=== PATIENT | male | born 1960 | race Caucasian/White ===

== ENCOUNTER 2020-01-29 09:54 | Emergency (ER) | payer BC, SELFPAY ==
[2020-01-29 09:59] VITALS: BP 172/106; PULSE 116; RESP 18; TEMP 35.7; O2SAT 100
--- NOTE | 2020-01-29 10:00 | ED.GIBLEED ---
HPI - GI Bleed General Chief complaint: Unspecified Stated complaint: gi bleed Time Seen by Provider: 01/29/20 09:57 Source: patient Mode of arrival: ambulatory Limitations: no limitations History of Present Illness HPI Narrative: This is a 59-year-old male that presents the emergency department for rectal bleeding since last night. Reports 2 days ago he started to have some pain in the area due to hemorrhoids. Reports last night he started to have bright red blood that he noted when he wiped. Reports he currently has a referral to see Dr. Coleman as he is in need of a colonoscopy. Denies fever, abdominal pain, or vomiting. Related Data Allergies Allergy/AdvReac Type Severity Reaction Status Date / Time No Known Allergies Allergy Verified 01/29/20 10:02 Review of Systems Review of Systems: Narrative: CONSTITUTIONAL: Denies fever GASTROINTESTINAL: Denies abdominal pain, nausea, vomiting, or diarrhea. All systems reviewed & are unremarkable except as noted in HPI and below PMFSH Past Medical History Medical History (Updated 01/29/20 @ 11:03 by Aimee Serrato PA-C) Essential (primary) hypertension Mixed hyperlipidemia Screen for colon cancer Social History Social History Smoking status: Never smoker Alcohol intake: current Exam Narrative: Exam Narrative: GENERAL: Well-appearing, well-nourished, and in no acute distress. HEAD: Normocephalic, atraumatic. EYES: EOMI. EXTREMITIES: Normal range of motion. No edema. SKIN: Warm, dry, no rash. NEURO: No focal deficits. Alert and oriented x3. PSYCH: Normal mood and affect RECTAL: Thrombosed external hemorrhoid present, no active bleeding Course Consultations Consultation #1: I did speak with Dr. Coleman who will follow up with patient in clinic. Date: 01/29/20 Time: 11:02 Vital Signs Vital signs: Vital Signs Temperature 96.2 F L 01/29/20 09:59 Pulse Rate 116 H 01/29/20 09:59 Respiratory Rate 18 01/29/20 09:59 Blood Pressure 172/106 H 01/29/20 09:59 Pulse Oximetry 100 01/29/20 09:59 Temperature 96.2 F L 01/29/20 09:59 Pulse Rate 98 01/29/20 10:57 Respiratory Rate 18 01/29/20 10:57 Blood Pressure 154/99 H 01/29/20 10:57 Pulse Oximetry 100 01/29/20 10:57 MDM - GI Bleed MDM Narrative Medical decision making narrative: Patient presents the emergency department for thrombosed external hemorrhoid. No active bleeding on exam. Patient is not orthostatic. His hemoglobin is stable at 16.9 when compared to previous labs a couple of days ago. Patient's blood pressure was elevated on arrival to 170s over 100s. This improved without intervention. Most recent blood pressure 154/99. He was instructed to continue to monitor his blood pressure at home and follow-up with his primary for this. Patient will be started on phenylephrine ointment for his hemorrhoid. I did speak with Dr. Coleman who will follow up with patient in clinic. Patient is stable and felt appropriate for further outpatient evaluation. He was given warnings to return to the ER Lab Data Attestation: I reviewed the patient's lab results. Result diagrams: 01/29/20 10:30 Labs: Lab Results 01/29/20 01/29/20 Range/Units 10:30 10:30 WBC 8.7 (4.5-10.0) K/mm3 RBC 5.75 (4.6-6.20) M/mm3 Hgb 16.9 (14.0-18.0) g/dL Hct 49.9 (42.0-52.0) % MCV 86.8 (80-100) fl MCH 29.4 (26-34) pg MCHC 33.9 (32-36) g/dl RDW 12.8 (11.5-14.5) % Plt Count 186 (150-375) k/mm3 MPV 11.4 H (7.4-10.4) fl Immature Gran % (Auto) 0.3 (0-0.5) % Neut % (Auto) 71.9 (45.5-73.1) % Lymph % (Auto) 18.6 (18.3-44.2) % [place] % (Auto) 8.3 (2.6-8.5) % Eos % (Auto) 0.6 (0-4.4) % Baso % (Auto) 0.3 (0.2-1.2) % Lymph # (Auto) 1.61 (0.9-3.2) K/mm3 [place]ami # (Auto) 0.7 H (0.1-0.6) K/mm3 Eos # (Auto) 0.1 (0-0.3) K/mm3 Baso # (Auto) 0.0 (0.0-0.1)
[2020-01-29 10:30] VITALS: BP 169/102; BP 183/110; PULSE 100; PULSE 98
[2020-01-29 10:31] VITALS: BP 174/121; PULSE 103
[2020-01-29 10:38] LABS: Basophils Percent Auto 0.3 % (0.2-1.2); Eosinophils Absolute Auto 0.1 K/mm3 (0-0.3); Eosinophils Percent Auto 0.6 % (0-4.4); Hematocrit 49.9 % (42.0-52.0); Hemoglobin 16.9 g/dL (14.0-18.0); Immature Granulocyte Absolute 0.03 K/mm3 (0.00-0.031); Immature Granulocyte Percent A 0.3 % (0-0.5); Lymphocytes Absolute Auto 1.61 K/mm3 (0.9-3.2); Lymphocytes Percent Auto 18.6 % (18.3-44.2); Mean Corpuscular HGB Conc 33.9 g/dl (32-36); Mean Corpuscular Hemoglobin 29.4 pg (26-34); Mean Corpuscular Volume 86.8 fl (80-100); Mean Platelet Volume 11.4 fl (7.4-10.4); Monocytes Absolute Auto 0.7 K/mm3 (0.1-0.6); Monocytes Percent Auto 8.3 % (2.6-8.5); Neutrophils Absolute Auto 6.2 K/mm3 (1.3-6.7); Neutrophils Percent Auto 71.9 % (45.5-73.1); Platelet Count Result 186 k/mm3 (150-375); Red Blood Count 5.75 M/mm3 (4.6-6.20); Red Cell Distribution Width 12.8 % (11.5-14.5); White Blood Count 8.7 K/mm3 (4.5-10.0)
[2020-01-29 10:46] LABS: Prothrombin Time 12.9 Seconds (11.1-14.7)
[2020-01-29 10:47] LABS: Partial Thromboplastin Time 29.2 SECONDS (22.3-36.8)
[2020-01-29 10:57] VITALS: BP 154/99; PULSE 98; RESP 18; O2SAT 100
== END 2020-01-29 11:22 | disposition home or self-care (01) ==
PROVIDERS: Physician Assistant; Emergency Provider Emergency Medicine; PCP Family Medicine
DX: K64.5 Perianal venous thrombosis (principal); I10 Essential (primary) hypertension; E78.2 Mixed hyperlipidemia
CPT/HCPCS: 36415; 85025; 85610; 85730; 86850; 86900; 86901; 99283

== ENCOUNTER 2020-03-13 10:12 | Outpatient (NON) | payer BC, SELFPAY ==
[2020-03-14 01:50] LABS: SARS-CoV-2 RNA PCR Positive
== END 2020-03-13 10:13 ==
LOC: ANHCOVIDDT 10:13
PROVIDERS: PCP Family Medicine; Visit Provider Family Medicine
DX: U07.1 COVID-19 (principal)
CPT/HCPCS: 87635; C9803; U0003

== ENCOUNTER 2020-08-12 16:02 | Outpatient (CLI) | payer BC, SELFPAY | END 2020-08-12 16:03 | disposition home or self-care (01) | LOC: ANHCOVIDVC 16:02 | PROVIDERS: PCP Family Medicine | DX: Z23 Encounter for immunization (principal) | CPT/HCPCS: 0001A; 91300 ==

== ENCOUNTER 2020-09-02 16:24 | Outpatient (CLI) | payer BC, SELFPAY | END 2020-09-02 16:25 | disposition home or self-care (01) | LOC: ANHCOVIDVC 16:24 | PROVIDERS: PCP Family Medicine | DX: Z23 Encounter for immunization (principal) | CPT/HCPCS: 0002A; 91300 ==

== ENCOUNTER 2021-11-21 01:09 | Day surgery (SDC) | payer BC, SELFPAY ==
[2021-11-11 08:59] VITALS: BMI 39.4
--- NOTE | 2021-11-21 09:24 | WPDANESEPPF ---
Anes - Initial Pre Proc Eval Procedure: Operation Date: 11/21/21 11:00 Proposed Procedures p Screening Colonoscopy - Jeffery Coleman MD Date/Time: 11/21/21 09:24 Surgeon: Jeffery Coleman MD Pre Op Diagnosis: neoplasm screening Patient Data Age: 61 Gender: M Height: 1.83 m Weight: 132 kg Allergies Allergy/AdvReac Type Severity Reaction Status Date / Time No Known Allergies Allergy Verified 11/21/21 10:35 Home Medications Medication Instructions Recorded Confirmed Type lisinopril 10 mg tablet 10 mg PO DAILY #90 tabs 06/06/21 11/21/21 Rx testosterone 20.25 mg/1.25 gram 2 pump topical DAILY #75 grams 06/10/21 11/21/21 Rx (1.62 %) transdermal gel pump (AndroGel) Patient hx anesthesia problems: none Family hx anesthesia problems: none Results Review: All pre-operative results and documents have been reviewed as part of the pre-operative evaluation. [facility] Past Medical History Medical History (Updated 11/21/21 @ 09:25 by Benny Grajeda MD) BMI 36.0-36.9,adult BMI 38.0-38.9,adult BMI 39.0-39.9,adult Encounter for screening colonoscopy Essential (primary) hypertension Hypertension Insomnia Major depressive disorder, single episode, unspecified Mixed hyperlipidemia Mixed hyperlipidemia Obesity (BMI 30-39.9) REY (obstructive sleep apnea) Screen for colon cancer Family History Family History Father Family history of heart disease in male family member before age 55 Mother Family history of heart disease in male family member before age 55 Sibling Alzheimer disease Parkinson disease Social History Social History (Updated 11/11/21 @ 09:11 by Martina Lal RN) Smoking packs per day: 1 Smoking cigarettes per day: 20.0 Years smoked: 20 Smoking pack-years: 20.00 Smoking status: Former smoker Tobacco type: cigarettes Second hand tobacco smoke exposure: No Alcohol intake: current Alcohol use details: occasional Substance use: never Substance use type: does not use Living arrangements: alone 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 by the patient): Male Spiritual care concerns: No Anes - Eval Final PreProcedure Day of Procedure 11/21/21 09:24 Patient weight: obese Heart: regular rate and rhythm Lungs: clear to auscultation and normal air movement Airway: Mallampati scale class II Neurological: alert and oriented Last oral intake: >/= 8 hours ASA classification: III Emergent: no Anesthetic plan: proceed Anesthesia type and monitoring: general GIVS Results Review: All pre-operative results and documents have been reviewed as part of the pre-operative evaluation. Informed Consent: The patient's anesthetic plan and its attendant risks and benefits were discussed with the patient/family/POA. Questions were solicited and answers provided to the satisfaction of the patient/family/POA.
[2021-11-21 10:37] VITALS: BP 176/104; PULSE 102; RESP 16; TEMP 36.9; O2SAT 98; BMI 37.8
[2021-11-21] MEDS: LACTATED RINGERS 1,000 ML 150 ML IV CONT (10:47)
--- NOTE | 2021-11-21 11:32 | PM.HPGS ---
History of Present Illness History of Present Illness Consent: Risks, benefits, and alternatives have been discussed and questions answered. Patient agrees to proceed with procedure. Chief complaint: neoplasm screening Narrative: Obey Pollack is a 61 year old male here for first screening colonoscopy Review of Systems Constitutional: Constitutional: Denies headache(s) and Denies weakness Eyes: Eyes: Denies blurry vision ENT: Reports Normal hearing present, Denies headache(s) and Denies neck pain Cardiovascular: Cardiovascular: Denies chest pain and Denies dyspnea Respiratory: Respiratory: Denies dyspnea Gastrointestinal: Gastrointestinal: Reports no additional gastrointestinal complaints Genitourinary: Genitourinary: Denies dysuria Musculoskeletal: Musculoskeletal: Denies neck pain Integumentary/Breasts: Skin/Breast: Denies dry skin Neurologic: Reports Normal hearing present, Denies headache(s) and Denies weakness Psychiatric: Psychiatric: Denies anxiety Endocrine: Endocrine: Denies change in body appearance Hematologic/Lymphatic: Hematologic/Lymphatic: Denies easy bleeding Allergic/Immunologic: Allergic/Immunologic: Denies urticaria PMF Past Medical History Medical History (Updated 11/21/21 @ 09:25 by Benny Grajeda MD) BMI 36.0-36.9,adult BMI 38.0-38.9,adult BMI 39.0-39.9,adult Encounter for screening colonoscopy Essential (primary) hypertension Hypertension Insomnia Major depressive disorder, single episode, unspecified Mixed hyperlipidemia Mixed hyperlipidemia Obesity (BMI 30-39.9) REY (obstructive sleep apnea) Screen for colon cancer Family History Family History Father Family history of heart disease in male family member before age 55 Mother Family history of heart disease in male family member before age 55 Sibling Alzheimer disease Parkinson disease Social History Social History (Updated 11/11/21 @ 09:11 by Martina Lal RN) Smoking packs per day: 1 Smoking cigarettes per day: 20.0 Years smoked: 20 Smoking pack-years: 20.00 Smoking status: Former smoker Tobacco type: cigarettes Second hand tobacco smoke exposure: No Alcohol intake: current Alcohol use details: occasional Substance use: never Substance use type: does not use Living arrangements: alone 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 by the patient): Male Spiritual care concerns: No Meds Home Medications and Allergies Home Medications Medication Instructions Recorded Confirmed Type lisinopril 10 mg tablet 10 mg PO DAILY #90 tabs 06/06/21 11/21/21 Rx testosterone 20.25 mg/1.25 gram 2 pump topical DAILY #75 grams 06/10/21 11/21/21 Rx (1.62 %) transdermal gel pump (AndroGel) Allergies Allergy/AdvReac Type Severity Reaction Status Date / Time No Known Allergies Allergy Verified 11/21/21 10:35 Vital Signs Vital Signs - 24 hr 11/21/21 10:37 Temperature 98.4 F Pulse Rate 102 H Respiratory Rate 16 Blood Pressure 176/104 H Pulse Oximetry 98 Oxygen Delivery Room Air Exam Const: General: comfortable and no acute distress HENMT: General nose exam: Normal nares present Eyes: General: appearance normal, both eyes and all related structures Neck: Neck: no JVD Resp: Auscultation: clear to auscultation bilaterally Cardio: Rate: regular rate Rhythm: regular rhythm GI: Inspection: non-distended GI Palp: Yes Soft to palpation Skin: General skin exam: normal color Neuro: General: gait normal Speech: normal speech Extrem: General: normal to inspection Psych: Mental Status: mental status grossly normal Assessment and Plan Assessment and plan (1) Encounter for screening colonoscopy: Code(s): Z12.11 - Encounter for screening for malignant neoplasm of colon Status: Acute Assessm
[2021-11-21 12:03] VITALS: BP 136/92; PULSE 83; RESP 20; O2SAT 97
[2021-11-21 12:13] VITALS: BP 131/95; PULSE 79; RESP 20; O2SAT 98
[2021-11-21 12:23] VITALS: BP 139/97; PULSE 89; RESP 21; O2SAT 97
== END 2021-11-21 12:29 | disposition home or self-care (01) ==
PROVIDERS: PCP Family Medicine; Visit Provider Internal Medicine Gastroenterology
PROC: 0DJD8ZZ Inspection of Lower Intestinal Tract, Via Natural or Artificial Opening Endoscopic (ICD-10-PCS; CPT 45378; principal; 2021-11-21 11:00)
DX: Z12.11 Encounter for screening for malignant neoplasm of colon (principal); D12.5 Benign neoplasm of sigmoid colon; K63.5 Polyp of colon; K64.8 Other hemorrhoids; I10 Essential (primary) hypertension; G47.00 Insomnia, unspecified; G47.33 Obstructive sleep apnea (adult) (pediatric); F32.A Depression, unspecified; E78.2 Mixed hyperlipidemia; Z87.891 Personal history of nicotine dependence; E66.9 Obesity, unspecified; Z68.37 Body mass index [BMI] 37.0-37.9, adult
CPT/HCPCS: 45385; 88305; J7120

== ENCOUNTER 2022-07-17 10:24 | Outpatient (RCR) | payer BC, SELFPAY | END 2022-08-21 11:36 | disposition home or self-care (01) | LOC: ANHDMC 10:24 | PROVIDERS: PCP Family Medicine; Visit Provider Family Medicine | DX: E11.65 Type 2 diabetes mellitus with hyperglycemia (principal); Z71.89 Other specified counseling | CPT/HCPCS: G0108 ==

== ENCOUNTER 2022-07-31 09:25 | Emergency (ER) | payer BC, SELFPAY ==
--- NOTE | 2022-07-31 09:31 | ED.URI ---
HPI - URI/Sore Throat General Chief Complaint: Upper Respiratory Infection Stated Complaint: cough, congestion Source: patient and RN notes reviewed History of Present Illness HPI Narrative: 41-year-old male presents to urgent care with complaints of a worsening cough since last Sunday. Patient is also reporting some congestion since yesterday. Patient states his cough is worse at night time and last night he noticed wheezing. Patient denies any chest pain, shortness of breath, vomiting, diarrhea, ear pain, or sore throat. Related Data Allergies Allergy/AdvReac Type Severity Reaction Status Date / Time No Known Allergies Allergy Verified 07/31/22 09:32 Review of Systems Review of Systems: Pertinent positives and pertinent negatives per HPI. [facility] Past Medical History Medical History (Updated 07/31/22 @ 09:49 by Elen Chavarria, FELICITA) BMI 36.0-36.9,adult BMI 38.0-38.9,adult BMI 39.0-39.9,adult BMI 40.0-44.9, adult Diabetes type 2, uncontrolled Elevated liver enzymes Encounter for screening colonoscopy Essential (primary) hypertension Hypertension Insomnia Major depressive disorder, single episode, unspecified Mixed hyperlipidemia Mixed hyperlipidemia Obesity (BMI 30-39.9) REY (obstructive sleep apnea) Screen for colon cancer Family History Family History Father Family history of heart disease in male family member before age 55 Mother Family history of heart disease in male family member before age 55 Sibling Alzheimer disease Parkinson disease Social History Social History Smoking packs per day: 1 Smoking cigarettes per day: 20.0 Years smoked: 20 Smoking pack-years: 20.00 Smoking status: Former smoker Tobacco type: cigarettes Second hand tobacco smoke exposure: No Alcohol intake: current Alcohol use details: occasional Substance use: never Substance use type: does not use Living arrangements: alone Occupation/Education: occupation 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 There is no relevant family history pertinent to the patient complaint. Exam Narrative: GENERAL: This is a well-nourished, well-developed patient, in no apparent distress. HEAD: normocephalic, atraumatic. EYES: PERRL. Sclera clear/white. Vision is grossly intact. EARS: External ears normal, auditory canals clear and without drainage, TMs normal without perforation. Hearing grossly intact. NOSE: External nose normal with no obvious nasal discharge, nares without redness, no rhinorrhea. THROAT: Mucous membranes moist, posterior pharynx clear. NECK: Neck supple, non-tender without lymphadenopathy, masses or thyromegaly. CARDIOVASCULAR: Regular rate and rhythm without murmurs, gallops, or rubs. RESPIRATORY: Clear to auscultation. Breath sounds equal bilaterally. No wheezes, rales, or rhonchi. GASTROINTESTINAL: Abdomen soft, non-tender, nondistended. Bowel sounds are active. No hepato-splenomegaly, or palpable masses. No guarding. SKIN: warm, intact with no suspicious lesions or rash, good texture and turgor. NEURO: awake, alert, and oriented to person, place and time. There were no obvious focal neurologic abnormalities. Course Course Level of Care: Express Care Visit Vital Signs Vital signs: Vital Signs Temperature 98 F 07/31/22 09:35 Pulse Rate 91 07/31/22 09:35 Respiratory Rate 16 07/31/22 09:35 Blood Pressure 144/94 H 07/31/22 09:35 Pulse Oximetry 98 07/31/22 09:35 Temperature 98 F 07/31/22 09:35 Pulse Rate 91 07/31/22 09:35 Respiratory Rate 16 07/31/22 09:35 Blood Pressure 144/94 H 07/31/22 09:35
[2022-07-31 09:35] VITALS: BP 144/94; PULSE 91; RESP 16; TEMP 36.6; O2SAT 98
== END 2022-07-31 09:54 | disposition home or self-care (01) ==
PROVIDERS: Emergency Provider Nurse Practitioner Family; PCP Family Medicine
DX: J40 Bronchitis, not specified as acute or chronic (principal); Z87.891 Personal history of nicotine dependence; E11.9 Type 2 diabetes mellitus without complications; E78.2 Mixed hyperlipidemia; E66.9 Obesity, unspecified; Z68.39 Body mass index [BMI] 39.0-39.9, adult
CPT/HCPCS: 99213; G0463

== ENCOUNTER 2023-11-27 11:24 | Outpatient (CLI) | payer BC, SELFPAY ==
--- NOTE | ~2023-11-27 | XR_ITS ---
XR chest 2V Ordering provider: Yary Bashir APRN History: 63 years Male with . R06.2 - Wheezing . Comparison: None. FINDINGS: MEDIASTINUM: The cardiac silhouette is not enlarged. LUNGS: No infiltrates, effusions or pneumothorax. OTHER: No free air under the diaphragm. Degenerative changes of the spine. IMPRESSION: No acute cardiopulmonary pathology. Reviewed, dictated and finalized at location A.
== END 2023-11-27 11:25 ==
LOC: MICIMG 11:25
PROVIDERS: PCP Family Medicine; Visit Provider Nurse Practitioner Adult Health
DX: R06.2 Wheezing (principal)
CPT/HCPCS: 71046

== ENCOUNTER 2024-03-31 09:23 | Outpatient (CLI) | payer BC, SELFPAY ==
--- NOTE | ~2024-03-31 | XR_ITS ---
Left Knee Technique: AP, lateral, and sunrise views were obtained. Clinical History: Pain Findings: No fracture or dislocation is seen. Osseous alignment is anatomic. Joint spaces are preserv ed without degenerative or erosive change. Soft tissues are unremarkable. No joint effusion is seen. Impression: Unremarkable left knee radiographs. Reviewed, dictated and finalized at location . IN[employer] ROOM ASSOCIATE Impression: Unremarkable left knee radiographs.
== END 2024-03-31 09:24 | disposition home or self-care (01) ==
PROVIDERS: PCP Family Medicine; Visit Provider Family Medicine
DX: M25.562 Pain in left knee (principal)
CPT/HCPCS: 73564

== ENCOUNTER 2024-04-19 12:27 | Emergency (ER) | payer BC, SELFPAY ==
--- NOTE | ~2024-04-19 | XR_ITS ---
XR chest 2V DATE: 04/19/2024 14:21 INDICATION: Cough, wheezing TECHNIQUE: 2 views COMPARISON: 11/27/2023 2 view chest FINDINGS: Normal heart size. No hilar or mediastinal enlargement. There is mild right diaphragmatic elevation. No pulmonary infiltrate or consolidation, pulmonary vascular congestion or pleural effusion or pneum othorax. IMPRESSION: No active cardiopulmonary disease Reviewed, dictated and finalized at location A. ET PERSON
[2024-04-19 12:44] VITALS: BP 130/83; PULSE 86; RESP 18; TEMP 36.4; O2SAT 97
--- NOTE | 2024-04-19 14:09 | ED_ITS ---
HPI - URI/Sore Throat General Chief Complaint: Upper Respiratory Infection Stated Complaint: wheezing Source: patient Mode of arrival: ambulatory Limitations: no limitations History of Present Illness HPI Narrative: 63-year-old male presents to [facility] complaints of nonproductive cough for the past 6 days. Patient reports that he then started with worsening cough and wheezing yesterday. Patient denies shortness of breath, fever, body aches or chills. Patient has been taking [id number] Coricidin, left over albuterol inhaler and taking [id number] NyQuil with little relief. Patient is nonsmoker. Patient reports that numerous coworkers have been ill with similar symptoms lately. MD elicited complaint: cough Onset (ago): day(s) (6) Consistency: intermittent Exacerbating factors: nothing Relieving factors: nothing Treatments prior to arrival: cold medicine Related Data Allergies Allergy/AdvReac Type Severity Reaction Status Date / Time No Known Allergies Allergy Verified 04/19/24 13:25 Review of Systems Constitutional: Constitutional: Denies chills, Denies fatigue, Denies fever(s) and Denies weakness ENT: Denies dizziness, Denies epistaxis, Denies nasal congestion and Denies sore throat Respiratory: Respiratory: Reports cough, Denies dyspnea and Reports wheezing Gastrointestinal: Gastrointestinal: Denies diarrhea, Denies nausea and Denies vomiting Genitourinary: Genitourinary: Denies dysuria Integumentary/Breasts: Skin/Breast: Denies rash Neurologic: Denies syncope and Denies headache(s) [facility] Past Medical History Medical History Upper respiratory infection, acute Cough Wheezing Diabetes type 2, controlled Neck pain Elevated liver enzymes Diabetes type 2, uncontrolled Skin cancer screening Insomnia Mixed hyperlipidemia Hypertension Encounter for screening colonoscopy Screen for colon cancer Essential (primary) hypertension Major depressive disorder, single episode, unspecified Mixed hyperlipidemia REY (obstructive sleep apnea) Family History Family History Father Family history of heart disease in male family member before age 55 CHF (congestive heart failure) Mother Family history of heart disease in male family member before age 55 Diabetes mellitus Multiple myeloma Sibling Alzheimer disease Parkinson disease Social History Social History Smoking packs per day: 1 Smoking cigarettes per day: 20.0 Years smoked: 20 Smoking pack-years: 20.00 Smoking status: Former smoker Tobacco type: cigarettes Second hand tobacco smoke exposure: Yes Alcohol intake: current Alcohol use details: occasional Substance use: never Substance use type: does not use Do You Feel Safe in your Home?: Yes Lack of Transportation: No Lack of Food: Never True Current Housing: I Have Housing Concerned About Future Housing: No Difficulty Paying Gas/Electric Bills: No Difficulty Paying for Meds: No Currently Unemployed: No Education: Bachelor's Degree Difficulty w/ Childcare or Family Care: No Living arrangements: alone Occupation/Education: occupation 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 There is no relevant family history pertinent to the presenting complaint. Exam Const: General: healthy appearing and no acute distress Nutritional Appearance: well nourished Orientation/consciousness: patient oriented x3 Limitations: no limitations HENMT: Head: normal to inspection Ears: external ears normal Face/Nose/Sinus: Normal external nose present and Normal nares present Face and sinus: normal facial exam Throat: posterior oropharynx normal and uvula midline Eyes: Conjunctivae: conjunctivae normal Neck: Neck: normal visual inspection Resp: Effort & Inspection: normal respiratory effort, not labored, no retractions and not tachypneic Auscultation: no crackles, no rales, no rhonchi, no wheezes and diminished lung sounds on the right in the lower lung nevarez Cardio: Rate: regular rate Rhythm: regular rhythm Heart sounds: no murmurs Skin: General skin exam: normal color Rashes: no rashes Wounds: no wounds Neuro: General: patient oriented x3 Speech: normal speech Extrem: General: normal to inspection Psych: Affect: normal affect Attitude: cooperative Course Course Level of Care: Express Care Visit Vital Signs Vital signs: Vital Signs Temperature 36.4 C L 04/19/24 12:44 Pulse Rate 86 04/19/24 12:44 Respiratory Rate 18 04/19/24 12:44 Blood Pressure 130/83 04/19/24 12:44 Pulse Oximetry 97 04/19/24 12:44 Oxygen Delivery Room Air 04/19/24 12:44 Temperature 36.4 C L 04/19/24 12:44 Pulse Rate 86 04/19/24 12:44 Respiratory Rate 18 04/19/24 12:44 Blood Pressure 130/83 04/19/24 12:44 Pulse Oximetry 97 04/19/24 12:44 Oxygen Delivery Room Air 04/19/24 12:44 MDM - URI/Sore Throat MDM Narrative Medical decision making narrative: Discussed negative chest x-ray results with patient. Instructed patient to take medications as prescribed. No steroids were given as patient has history of diabetes reports that he has tried taking steroids in the past and they have increased sugars. Educated patient proceed to emergency room if symptoms worsen Differential Diagnosis Differential diagnosis: Likely sinusitis, viral infection and bronchitis Imaging Data Radiologist's impression: Obey Pollack (c) 63 M 1960 Allergy/Adv: [place] [address] XRay Report Signed Patient: Obey Pollack : 1960 MR#: [id number] Age: 63 Acct:[id number] Loc: [facility] ADM Date: 04/19/[address]: Ordering Physician: Deya Rivero APRN Date of Service: 04/19/24 Procedure(s): XR chest 2V Accession Number(s): [id number] cc: Deya Rivero APRN; Pablo Jenkins MD~ XR chest 2V DATE: 04/19/2024 14:21 INDICATION: Cough, wheezing TECHNIQUE: 2 views COMPARISON: 11/27/2023 2 view chest FINDINGS: Normal heart size. No hilar or mediastinal enlargement. There is mild right diaphragmatic elevation. No pulmonary infiltrate or consolidation, pulmonary vascular congestion or pleural effusion or pneumothorax. IMPRESSION: No active cardiopulmonary disease Reviewed, dictated and finalized at location A. O LAB MANAGER Dictated By: Darrius Diallo MD 04/19/24 1455 Signed By: <Electronically signed by Darrius Diallo MD in OV> 04/19/24 145 Critical Care Time Critical Care Time Critical Care Time: No Discharge Plan Discharge Clinical Impression: Upper respiratory infection Qualifiers: URI type: unspecified URI Qualified Code(s): J06.9 - Acute upper respiratory infection, unspecified Patient Disposition: Home, Self-Care Condition: Stable Instructions: Antibiotic Form Additional Instructions: Rest Increase fluids Taking antibiotic as prescribed Use inhaler as needed for shortness of breath, wheezing or coughing fits Take cough medication as needed Proceed to the emergency room symptoms worsen Patient Language: Swedish Prescriptions: New azithromycin [Zithromax Z-Chris] 250 mg tablet See Rx Instructions .ROUTE .COMPLEX Qty: 6 0RF Rx Instructions: For 250 mg dose pack: take 500 mg today (day 1), then 250 mg for 4 days (days 2-5) Proair Digihaler 90 mcg/actuation aero powdr breath act w/sensor 1 inh inhalation Q4-6H PRN (Reason: shortness of breath or wheezing) Qty: 1 0RF benzonatate 100 mg capsule 100 mg PO BID PRN (Reason: cough) Qty: 20 0RF No Action lisinopril 10 mg tablet 10 mg PO DAILY Qty: 90 3RF (DME) OneTouch Verio test strips Strip See Rx Instructions .Route Qty: 100 2RF Rx Instructions: for use with glucose monitoring bid (DME) lancets [OneTouch SureSoft Lancing Dev] 28 gauge misc See Rx Instructions .Route Qty: 100 2RF Rx Instructions: for use with blood glucose monitoring bid (DME) lancets Misc See Rx Instructions .Route Qty: 200 3RF Rx Instructions: Use BID rosuvastatin 20 mg tablet 20 mg PO DAILY Qty: 90 3RF Mounjaro 5 mg/0.5 mL pen injector 5 mg subcut WEEKLY Qty: 2 0RF Follow-up/Referrals: Pablo Jenkins MD [Primary Care Provider] - Time of Disposition: 15:07
== END 2024-04-19 15:11 | disposition home or self-care (01) ==
PROVIDERS: Emergency Provider Nurse Practitioner Family; PCP Family Medicine
DX: J06.9 Acute upper respiratory infection, unspecified (principal); E11.9 Type 2 diabetes mellitus without complications; I10 Essential (primary) hypertension; E78.2 Mixed hyperlipidemia; Z87.891 Personal history of nicotine dependence
CPT/HCPCS: 71046; 99213; G0463